=== PATIENT | female | born 1990 | race Caucasian/White ===

== ENCOUNTER 2018-09-15 11:04 | Emergency (ER) | payer BC, SELFPAY ==
--- NOTE | 2018-09-15 20:59 | RAD ---
RIGHT ANKLE THREE VIEWS: 09/15/2018 FINDINGS: Soft tissue swelling is seen around the ankle, but no fracture are apparent. The joint appears intac t. A tiny calcaneal spur is noted. IMPRESSION: Soft tissue swelling. POS: HOME
== END 2018-09-15 12:09 | disposition home or self-care (01) ==
LOC: BURERS 11:04
DX: S93.401A Sprain of unspecified ligament of right ankle, initial encounter (principal); F17.210 Nicotine dependence, cigarettes, uncomplicated; X50.9XXA Other and unspecified overexertion or strenuous movements or postures, initial encounter

== ENCOUNTER 2021-01-18 05:50 | Emergency (ER) | payer OTHER, SELFPAY ==
[2021-01-18] MEDS ORDERED: Sulfameth/Trimethoprim DS 800-160mg TAB ONE (06:21)
== END 2021-01-18 06:23 | disposition home or self-care (01) ==
LOC: BURERS 05:50
DX: L03.211 Cellulitis of face (principal); K02.9 Dental caries, unspecified; F17.210 Nicotine dependence, cigarettes, uncomplicated
CPT/HCPCS: 99283

== ENCOUNTER 2021-03-17 05:07 | Emergency (ER) | payer OTHER | END 2021-03-17 05:50 | disposition home or self-care (01) | LOC: BURERS 05:07 | DX: K62.5 Hemorrhage of anus and rectum (principal); F17.210 Nicotine dependence, cigarettes, uncomplicated | CPT/HCPCS: 99283 ==

== ENCOUNTER 2023-11-23 05:31 | Emergency (ER) | payer SELFPAY ==
[2023-11-23] MEDS ORDERED: Ketorolac Tromethamine 60 MG/2 ML VIAL ONE (06:08)
[2023-11-23] MEDS ORDERED: Cephalexin 250 MG CAP ONE (06:08)
== END 2023-11-23 06:30 | disposition home or self-care (01) ==
LOC: BURERS 05:31
DX: S02.5XXA Fracture of tooth (traumatic), initial encounter for closed fracture (principal); K02.9 Dental caries, unspecified; K04.7 Periapical abscess without sinus; F17.210 Nicotine dependence, cigarettes, uncomplicated; X58.XXXA Exposure to other specified factors, initial encounter
CPT/HCPCS: 96372; 99282; J1885

== ENCOUNTER 2024-11-22 14:07 | Emergency (ER) | payer OTHER, SELFPAY ==
[2024-11-22] MEDS ORDERED: Ibuprofen 200 MG TAB ONE (14:43)
== END 2024-11-22 15:09 | disposition home or self-care (01) ==
LOC: BURERS 14:07
DX: J02.9 Acute pharyngitis, unspecified (principal); F17.290 Nicotine dependence, other tobacco product, uncomplicated
CPT/HCPCS: 87081; 87430; 99283